=== PATIENT | male | born 1980 | race Caucasian/White ===

== ENCOUNTER 2017-10-14 09:05 | Day surgery (SDC) | payer OTHER ==
[~2017-10-14] VITALS: Ht 172.7 cm; Wt 110.7 kg
[~2017-10-14 09:05] MED LIST: CEFAZOLIN SOD 1 GM/ ISO 50 ML PREMIX IV ONE
[2017-10-14] MEDS ORDERED: POLYMYXIN 500,000/BACIT.10,000 UNITS in NS IRR 1 L IR ONE (10:30)
[2017-10-14] MEDS ORDERED: MIDAZOLAM HCL 5 MG/5 ML VIAL IVP ONE (11:20)
[2017-10-14] MEDS ORDERED: ROCURONIUM BROMIDE 10 MG/ML (ZEMURON) IV ONE (11:20)
[2017-10-14] MEDS ORDERED: BUPIVACAINE /PF 0.25% 30 ML VIAL INJ ONE (11:20)
[2017-10-14] MEDS ORDERED: SEVOFLURANE 15 MIN GAS INH ONE (11:20)
[2017-10-14] MEDS ORDERED: PROPOFOL 200MG/ 20ML VIAL (DIPRIVAN) IV ONE (11:20)
[2017-10-14] MEDS ORDERED: ONDANSETRON HCL 4 MG/2 ML VIAL IVP ONE (11:20)
[2017-10-14] MEDS ORDERED: LR 1,000 ML IV SCH (11:58)
[2017-10-14] MEDS ORDERED: MORPHINE 4 MG/ML INJ. SYRINGE IVP PRN ×3 (12:00)
[2017-10-14] MEDS ORDERED: METOCLOPRAMIDE HCL 10 MG/2 ML VIAL IVP PRN (12:00)
[2017-10-14] MEDS ORDERED: D5/0.45 NS 1,000 ML IV SCH (12:16)
[2017-10-14] MEDS ORDERED: HYDROcodone/ACETAMIN 5-325 MG TAB (NORCO/ VICODIN) PO PRN ×2 (12:30)
[2017-10-14] MEDS ORDERED: HYDROmorphone 1 MG INJ. 1 MG/ML AMPUL IVP PRN (12:30)
[2017-10-14] MEDS ORDERED: MORPHINE SULFATE 10 MG/ML VIAL ONE (12:31)
[2017-10-14 14:29] VITALS: BP_SYST 122
== END 2017-10-14 14:30 | disposition home or self-care (01) ==
LOC: SDS 09:05 → SMU 09:06 → EDSEX 10:30 → SDS 14:30
PROVIDERS: ATTEND Colon & Rectal Surgery
DX: K42.0 Umbilical hernia with obstruction, without gangrene (principal); Z80.3 Family history of malignant neoplasm of breast; Z68.38 Body mass index [BMI] 38.0-38.9, adult; E66.01 Morbid (severe) obesity due to excess calories
CPT/HCPCS: 49587; 88302; C1781; J0690; J2250; J2270; J2405; J2704; J3490